=== PATIENT | female | born 1930 | race Caucasian/White ===

== ENCOUNTER 2020-02-13 20:21 | Inpatient (IN) ==
[2020-02-13] MEDS ORDERED: methylPREDNISolone 125 MG/2 ML VIAL IVP ONE (20:31)
[2020-02-13] MEDS ORDERED: Ipratropium/Albuterol Neb 3 ML IH ONE (20:31)
[2020-02-13 20:47] LABS: Basophils % 0.3 %; Eosinophils % 0.7 %; Hematocrit 35.6 % (35.3-44.9); Hemoglobin 10.9 g/dL (11.5-15.4); Immature Granulocytes % 0.3 % (0-4); Lymphocytes # 0.4 K/mcL (0.6-4.6); Lymphocytes % 6.2 %; Mean Corpuscular HGB Conc 30.6 g/dL (31.6-35.5); Mean Corpuscular Hemoglobin 29.5 pg (28.0-33.3); Mean Corpuscular Volume 96.2 fL (83.0-100.0); Mean Platelet Volume 11.9 fL (9.4-12.4); Monocytes # 0.3 K/mcL (0.0-1.3); Monocytes % 4.8 %; Neutrophils # 5.1 K/mcL (1.6-8.9); Platelet Count 142 K/mcL (140-400); Red Cell Distribution Width 12.8 % (11.5-14.5); Segmented Neutrophils % 87.7 %; White Blood Count 5.9 K/mcL (4.3-11.1)
[2020-02-13 20:54] LABS: VBG HCO3 30 mEq/L (21-27); VBG PCO2 69 mmHg (41-51); VBG PH 7.25 pH Units (7.32-7.42); VBG PO2 33 mmHg (25-50)
[2020-02-13 21:22] LABS: Calcium 8.5 mg/dL (8.6-10.3); Potassium 5.2 mEq/L (3.5-5.1)
[2020-02-13 21:23] LABS: Troponin I 0.03 ng/mL (< 0.04)
[2020-02-13] MEDS ORDERED: Furosemide 40 MG/4 ML VIAL IVP ONE (21:46)
[2020-02-13 22:45] LABS: Bilirubin,Urine Small (Negative); Blood,Urine Negative (Negative); Clarity,Urine Turbid (Clear); Color,Urine Dark Yellow (Yellow); Glucose,Urine (UA) Normal (Normal); Ketones,Urine Negative (Negative); Leukocyte Esterase,Urine Large (Negative); Nitrite,Urine Negative (Negative); Protein,Urine 100 mg/dL (Neg-Trace); Specific Gravity,Urine 1.023 (1.010-1.025); Urobilinogen,Urine Normal (Normal)
[2020-02-13 22:51] LABS: Bacteria,Urine Many per hpf (None-Few); Hyaline Casts,Urine None Seen per lpf (None-Few); Squamous Epithelial Cell,Urine Many per lpf (None-Few); WBC,Urine TNTC per hpf (0-3)
[2020-02-13] MEDS ORDERED: Acetaminophen 325 MG TABLET PO PRN (22:59)
[2020-02-13] MEDS ORDERED: Naloxone 0.4 MG/ML INJ IVP PRN (22:59)
[2020-02-13] MEDS ORDERED: Ondansetron 4 MG/2 ML VIAL IVP PRN (23:19)
[2020-02-14 00:25] LABS: Yeast,Urine Few per hpf (None Seen)
[2020-02-14 05:39] LABS: Hematocrit 30.6 % (35.3-44.9); Hemoglobin 9.7 g/dL (11.5-15.4); Immature Granulocytes % 0.3 % (0-4); Lymphocytes # 0.3 K/mcL (0.6-4.6); Lymphocytes % 11.4 %; Mean Corpuscular HGB Conc 31.7 g/dL (31.6-35.5); Mean Corpuscular Hemoglobin 29.6 pg (28.0-33.3); Mean Corpuscular Volume 93.3 fL (83.0-100.0); Mean Platelet Volume 12.3 fL (9.4-12.4); Monocytes # 0.1 K/mcL (0.0-1.3); Monocytes % 3.8 %; Neutrophils # 2.5 K/mcL (1.6-8.9); Platelet Count 116 K/mcL (140-400); Red Blood Count 3.28 M/mcL (3.82-4.97); Red Cell Distribution Width 12.7 % (11.5-14.5); Segmented Neutrophils % 84.5 %
[2020-02-14 05:44] LABS: White Blood Count 2.9 K/mcL (4.3-11.1)
[2020-02-14 05:46] LABS: INR 1.5; Prothrombin Time 17.3 Seconds (9.4-12.1)
[2020-02-14 06:29] LABS: Albumin 3.3 g/dL (3.5-5.7); Albumin/Globulin Ratio 1.3 (1.1-2.2); Bilirubin,Total 0.5 mg/dL (0.3-1.0); Calcium 8.4 mg/dL (8.6-10.3); Globulin 2.6 g/dL (2.4-3.5); Magnesium 1.1 mg/dL (1.6-2.6); Phosphorous 3.2 mg/dL (2.7-4.5); Potassium 4.2 mEq/L (3.5-5.1); Total Protein 5.9 g/dL (6.4-8.9)
[2020-02-14] MEDS: Furosemide 20 MG/2 ML VIAL IVP SCH ×2 (09:24→20:36)
[2020-02-14] MEDS ORDERED: *HR* Metoprolol 5 MG/5 ML VIAL IVP PRN (14:08)
[2020-02-14] MEDS: Fenofibrate 54 MG TABLET PO SCH (20:35)
[2020-02-14] MEDS: traZODone 50 MG TABLET PO SCH (20:36)
[2020-02-14] MEDS: Apixaban 2.5 MG TABLET PO SCH (20:36)
[2020-02-14] MEDS: Ipratropium/Albuterol Neb 3 ML IH PRN (21:12)
[2020-02-15] MEDS ORDERED: Haloperidol Lactate 5 MG/ML VIAL IVP ONE (02:45)
[2020-02-15] MEDS: Ipratropium/Albuterol Neb 3 ML IH PRN (04:31)
[2020-02-15] MEDS: Levalbuterol Neb 1.25 MG/3 ML IH SCH ×4 (07:37→20:02)
[2020-02-15] MEDS ORDERED: Metoprolol XL (24 HR) Succ 50 MG TAB.ER.24H PO SCH ×2 (07:44→09:00)
[2020-02-15] MEDS ORDERED: Perflutren Lipid Microsphere 1.3 ML in 0.9 % Sodium Chloride 8.7 ML IVP ONE (07:52)
[2020-02-15 08:43] LABS: Basophils % 0.4 %; Hematocrit 32.8 % (35.3-44.9); Hemoglobin 10.3 g/dL (11.5-15.4); Immature Granulocytes % 0.2 % (0-4); Lymphocytes # 0.7 K/mcL (0.6-4.6); Lymphocytes % 13.8 %; Mean Corpuscular HGB Conc 31.4 g/dL (31.6-35.5); Mean Corpuscular Hemoglobin 29.3 pg (28.0-33.3); Mean Corpuscular Volume 93.4 fL (83.0-100.0); Monocytes # 0.4 K/mcL (0.0-1.3); Monocytes % 8.9 %; Neutrophils # 3.6 K/mcL (1.6-8.9); Platelet Count 124 K/mcL (140-400); Red Blood Count 3.51 M/mcL (3.82-4.97); Segmented Neutrophils % 76.7 %
[2020-02-15 08:44] LABS: White Blood Count 4.7 K/mcL (4.3-11.1)
[2020-02-15] MEDS: Apixaban 2.5 MG TABLET PO SCH ×2 (08:45→20:10)
[2020-02-15] MEDS: Furosemide 20 MG/2 ML VIAL IVP SCH (08:49)
[2020-02-15] MEDS ORDERED: METOPROLOL SUCCINATE 200 MG PO SCH (09:00)
[2020-02-15 09:02] LABS: Calcium 8.4 mg/dL (8.6-10.3); Potassium 3.7 mEq/L (3.5-5.1)
[2020-02-15] MEDS: traZODone 50 MG TABLET PO SCH (20:10)
[2020-02-15] MEDS: Fenofibrate 54 MG TABLET PO SCH (20:10)
[2020-02-15] MEDS ORDERED: Furosemide 40 MG/4 ML VIAL IVP ONE (20:49)
[2020-02-15] MEDS ORDERED: Nystatin POWDER 30 GM BOTTLE TP SCH (21:00)
[2020-02-15] MEDS ORDERED: Furosemide 40 MG/4 ML VIAL IVP SCH (21:00)
[2020-02-16] MEDS: Levalbuterol Neb 1.25 MG/3 ML IH SCH ×7 (00:02→20:57)
[2020-02-16 05:51] LABS: Basophils % 0.2 %; Eosinophils % 0.9 %; Hematocrit 31.5 % (35.3-44.9); Hemoglobin 10.4 g/dL (11.5-15.4); Immature Granulocytes % 0.9 % (0-4); Lymphocytes # 1.4 K/mcL (0.6-4.6); Lymphocytes % 32.8 %; Mean Corpuscular Hemoglobin 29.8 pg (28.0-33.3); Mean Corpuscular Volume 90.3 fL (83.0-100.0); Mean Platelet Volume 12.7 fL (9.4-12.4); Monocytes # 0.5 K/mcL (0.0-1.3); Monocytes % 10.6 %; Neutrophils # 2.3 K/mcL (1.6-8.9); Platelet Count 110 K/mcL (140-400); Red Blood Count 3.49 M/mcL (3.82-4.97); Red Cell Distribution Width 12.9 % (11.5-14.5); Segmented Neutrophils % 54.6 %; White Blood Count 4.2 K/mcL (4.3-11.1)
[2020-02-16 06:23] LABS: Albumin 2.9 g/dL (3.5-5.7); Bilirubin,Direct 0.2 mg/dL (0.0-0.2); Bilirubin,Indirect 0.2 mg/dL (0.0-1.0); Bilirubin,Total 0.4 mg/dL (0.3-1.0); Calcium 7.8 mg/dL (8.6-10.3); Globulin 2.8 g/dL (2.4-3.5); Magnesium 3.1 mg/dL (1.6-2.6); Potassium 3.4 mEq/L (3.5-5.1); Total Protein 5.7 g/dL (6.4-8.9)
[2020-02-16] MEDS ORDERED: *HR* Metoprolol 5 MG/5 ML VIAL IVP PRN (07:52)
[2020-02-16] MEDS ORDERED: Naloxone 0.4 MG/ML INJ IVP PRN (07:52)
[2020-02-16] MEDS ORDERED: Furosemide 20 MG/2 ML VIAL IVP SCH (08:00)
[2020-02-16] MEDS: Metoprolol XL (24 HR) Succ 50 MG TAB.ER.24H PO SCH (08:53)
[2020-02-16] MEDS: Apixaban 2.5 MG TABLET PO SCH ×2 (08:53→19:48)
[2020-02-16] MEDS: Furosemide 20 MG/2 ML VIAL IVP SCH ×2 (15:36→19:48)
[2020-02-16] MEDS: Acetaminophen 325 MG TABLET PO PRN (19:47)
[2020-02-16] MEDS: traZODone 50 MG TABLET PO SCH (19:47)
[2020-02-16] MEDS: Fenofibrate 54 MG TABLET PO SCH (19:47)
[2020-02-17] MEDS: Levalbuterol Neb 1.25 MG/3 ML IH SCH ×7 (00:24→23:39)
[2020-02-17] MEDS: Furosemide 20 MG/2 ML VIAL IVP SCH ×2 (09:23→22:43)
[2020-02-17] MEDS: Apixaban 2.5 MG TABLET PO SCH ×2 (09:23→22:45)
[2020-02-17 09:25] LABS: Basophils % 0.3 %; Eosinophils # 0.1 K/mcL (0.0-0.6); Eosinophils % 3.7 %; Hematocrit 35.6 % (35.3-44.9); Immature Granulocytes % 0.3 % (0-4); Lymphocytes # 1.1 K/mcL (0.6-4.6); Mean Corpuscular HGB Conc 30.9 g/dL (31.6-35.5); Mean Corpuscular Hemoglobin 29.1 pg (28.0-33.3); Mean Corpuscular Volume 94.2 fL (83.0-100.0); Mean Platelet Volume 12.7 fL (9.4-12.4); Monocytes # 0.3 K/mcL (0.0-1.3); Monocytes % 8.7 %; Neutrophils # 1.6 K/mcL (1.6-8.9); Platelet Count 116 K/mcL (140-400); Red Blood Count 3.78 M/mcL (3.82-4.97); Red Cell Distribution Width 12.7 % (11.5-14.5)
[2020-02-17] MEDS: Metoprolol XL (24 HR) Succ 50 MG TAB.ER.24H PO SCH (09:25)
[2020-02-17 09:46] LABS: Calcium 8.2 mg/dL (8.6-10.3); Magnesium 2.1 mg/dL (1.6-2.6); Potassium 3.6 mEq/L (3.5-5.1)
[2020-02-17] MEDS: Acetaminophen 325 MG TABLET PO PRN (22:43)
[2020-02-17] MEDS: Fenofibrate 54 MG TABLET PO SCH (22:44)
[2020-02-17] MEDS: traZODone 50 MG TABLET PO SCH (22:45)
[2020-02-18 01:10] LABS: Basophils % 0.3 %; Eosinophils % 1.1 %; Hematocrit 32.6 % (35.3-44.9); Hemoglobin 10.2 g/dL (11.5-15.4); Immature Granulocytes % 0.5 % (0-4); Lymphocytes # 1.3 K/mcL (0.6-4.6); Mean Corpuscular HGB Conc 31.3 g/dL (31.6-35.5); Mean Corpuscular Hemoglobin 29.1 pg (28.0-33.3); Mean Corpuscular Volume 92.9 fL (83.0-100.0); Mean Platelet Volume 12.7 fL (9.4-12.4); Monocytes # 0.3 K/mcL (0.0-1.3); Monocytes % 8.9 %; Platelet Count 114 K/mcL (140-400); Red Blood Count 3.51 M/mcL (3.82-4.97); Red Cell Distribution Width 12.6 % (11.5-14.5); Segmented Neutrophils % 54.2 %; White Blood Count 3.7 K/mcL (4.3-11.1)
[2020-02-18 01:27] LABS: Calcium 7.8 mg/dL (8.6-10.3); Potassium 3.5 mEq/L (3.5-5.1)
[2020-02-18] MEDS: Levalbuterol Neb 1.25 MG/3 ML IH SCH ×4 (03:14→15:43)
[2020-02-18 08:01] VITALS: BP 139/73
[2020-02-18] MEDS: Metoprolol XL (24 HR) Succ 50 MG TAB.ER.24H PO SCH (10:32)
[2020-02-18] MEDS: Apixaban 2.5 MG TABLET PO SCH (10:32)
[2020-02-18] MEDS: Furosemide 20 MG/2 ML VIAL IVP SCH (10:32)
== END 2020-02-18 18:35 | disposition home health service (06) | DRG 291 ==
LOC: 3BNU 20:21 → EMEROOARM 20:21 → SUATTDRO 22:26 → 3BNU 23:09 → 2NENU 02-15 16:15 → SUATTDRO 02-15 16:16
PROVIDERS: ADMIT Student in an Organized Health Care Education/Training Program; ATTEND Internal Medicine